=== PATIENT | male | born 1935 ===

== ENCOUNTER 2016-11-23 11:44 | Day surgery (SDC) | payer OTHER ==
[2016-11-21 12:15] LABS: HEMATOCRIT 41.4 % (40.0-51.0); HEMOGLOBIN 14.7 g/dL (13.6-17.8)
[2016-11-21 12:38] LABS: BUN (BLOOD UREA NITROGEN) 9 MG/DL (6-23); CHLORIDE, SERUM 104 MMOL/L (96-112); CO2 (CARBON DIOXIDE) 32 MMOL/L (24-34); CREATININE 1.14 MG/DL (0.70-1.30); GFR AFRICAN AMERICAN 71 ML/MIN (>=60); GFR NON AFRICAN AMERICAN 61 ML/MIN (>=60); GLUCOSE, SERUM 116 MG/DL (60-99); POTASSIUM, SERUM 3.8 MMOL/L (3.5-5.3); SODIUM, SERUM 142 MMOL/L (135-148)
[2016-11-21 14:08] LABS: ASCORBIC ACID (UR NOT ORDER) NEG (NEG); BILIRUBIN, URINE NEGATIVE (NEG); KETONE, URINE NEGATIVE (NEG); LEUKOCYTE ESTERASE(NOT OR NEG (NEG); WBC (NOT ORDERED) (RFLEX) 1 (0-5)
--- NOTE | ~2016-11-23 | OP ---
Record Of Operation [facility] [address] [place]. [address] NAME: EH CARIAS : 39 STATUS : [facility]#: [id number] AGE: 81 ADM/REG DATE : 11/23/16 MR#: [id number] REPORT SERV DATE: 11/24/16 DICTATED BY: KOJO VILLAGOMEZ DATE: 11/23/16 REPORT STATUS : Draft TRANSCRIBED BY: COLBY DATE: 11/23/16 DATE OF PROCEDURE: 11/23/2016 TITLE OF OPERATION: 1. Lysis of penile adhesions. 2. Modified sleeve circumcision. PREOPERATIVE DIAGNOSES: 1. Paraphimosis. 2. Penile adhesions. POSTOPERATIVE DIAGNOSES: 1. Paraphimosis. 2. Penile adhesions. INDICATIONS: Mr. Carias is a 81-year-old male with paraphimosis resulting in glans and distal penile edema. He also has some penile adhesions. He is here for surgical correction. ANESTHESIA: General. COMPLICATIONS: None. IMPLANTS: None. SPECIMEN: Foreskin for pathologic analysis. NARRATIVE: The patient was brought to the operating room, identified by his wristband. General anesthesia was induced and Ancef was given for preoperative antibiotics. He was prepped and draped in sterile fashion. A 3-0 Prolene suture was placed to his glans as a marking suture. The penile adhesions between his shaft skin and his glans were bluntly taken down with Ray-Carol and a hemostat. There was some bleeding here, but nothing too serious. Next, a circumferential incision was made approximately 2 cm beneath the glans penis. A second circumferential incision was made on the mid shaft of the penis, which left him with plenty of penile skin. The resected skin was then divided and removed off the shaft of the penis with electrocautery. Hemostasis was obtained with forceps and cautery. Next, the frenulum of the penis was brought back to the orthotopic position using a 4-0 Vicryl suture. The dorsal aspect of the suture line was closed with a running 4-0 Vicryl suture. The ventral side of the incision was closed with interrupted 4-0 Vicryl suture. The cosmetic result was acceptable. A Xeroform, Kerlix, and Coban dressing was placed. The barbed suture was removed. Copious bacitracin was placed over the glans penis especially where the adhesions were taken down. The patient was transferred to the recovery room in stable condition and no complications. The patient will remove his dressing at home Record Of Operation [place] [id number] [facility] [place]. [address] NAME: EH CARIAS : 39 STATUS : [facility] PAT#: [id number] AGE: 81 ADM/REG DATE : 11/23/16 MR#: [id number] REPORT SERV DATE: 11/24/16 DICTATED BY: KOJO VILLAGOMEZ DATE: 11/23/16 REPORT STATUS : Draft TRANSCRIBED BY: COLBY DATE: 11/23/[address] the bacitracin on his glans penis twice a day for a week to prevent re- formation of these adhesions. MAYO/COLBY Kojo Villagomez MD / [id number] CC: MD Crystal Ramirez M.D.
[~2016-11-23 11:44] MED LIST: CYMBALTA30 PO; LOP50 PO; NORV5 PO; PRAVAC PO; PRILO PO; PRINZIDE1 TA1 PO; SUCR PO; V5 PO
== END 2016-11-23 18:29 | disposition home or self-care (01) ==
LOC: SDC 11:44
PROVIDERS: Urology
PROC: 0VTTXZZ Resection of Prepuce, External Approach (ICD-10-PCS; principal; 2016-11-23 14:00)
DX: N48.1 Balanitis (principal); N47.2 Paraphimosis; N48.9 Disorder of penis, unspecified; I10 Essential (primary) hypertension; I25.10 Atherosclerotic heart disease of native coronary artery without angina pectoris; F32.9 Major depressive disorder, single episode, unspecified; Z88.0 Allergy status to penicillin; Z79.899 Other long term (current) drug therapy
CPT/HCPCS: 80048; 81001; 85014; 85018; 88304; 93005; J0690; J2405; J3010

== ENCOUNTER 2016-11-25 12:43 | Emergency (ER) | payer OTHER ==
[2016-11-25 12:02] LABS: HEMATOCRIT 43.9 % (40.0-51.0); HEMOGLOBIN 15.4 g/dL (13.6-17.8)
== END 2016-11-25 13:35 | disposition home or self-care (01) ==
LOC: ER 12:43
PROVIDERS: Nurse Practitioner
DX: N99.820 Postprocedural hemorrhage of a genitourinary system organ or structure following a genitourinary system procedure (principal); I10 Essential (primary) hypertension; Z95.5 Presence of coronary angioplasty implant and graft; Z88.0 Allergy status to penicillin; Z79.899 Other long term (current) drug therapy
CPT/HCPCS: 85014; 85018; 99283